=== PATIENT | female | born 1960 | race Caucasian/White ===

== ENCOUNTER 2021-12-25 13:32 | Emergency (ER) | payer OTHER ==
[2021-12-25 15:44] LABS: HEMOGLOBIN 14.2 gm/dl (12.3-15.3); RED BLOOD COUNT 4.48 M/UL (4.00-5.10)
[2021-12-25 16:30] LABS: BUN/CREATININE RATIO 10 (0-10)
[2021-12-25] MEDS ORDERED: PHENERGAN 12.12.5 M1 PO (17:13)
== END 2021-12-25 18:24 | disposition home or self-care (01) ==
LOC: ER1 13:32
PROVIDERS: Family Medicine
DX: R42 Dizziness and giddiness (principal); H92.01 Otalgia, right ear; H54.7 Unspecified visual loss; R11.0 Nausea; I10 Essential (primary) hypertension; E11.9 Type 2 diabetes mellitus without complications; Z79.84 Long term (current) use of oral hypoglycemic drugs; Z88.0 Allergy status to penicillin; Z79.82 Long term (current) use of aspirin
CPT/HCPCS: 70450; 80053; 82550; 82553; 84439; 84443; 84484; 85025; 93005; 99284